=== PATIENT | female | born 1945 | race Caucasian/White ===

== ENCOUNTER 2017-02-19 14:55 | Emergency (ER) | payer MEDICARE, OTHER ==
[2017-02-19 14:55] VITALS: BMI 34.2
[2017-02-19 15:03] VITALS: TEMP 98.5
--- NOTE | 2017-02-19 15:26 | ED PDOC ---
HPI: Psych/Substance Abuse Time Seen by Provider: 02/19/17 15:04 Chief Complaint (Nursing): Psychiatric Evaluation Chief Complaint (Provider): Psychiatric Evaluation ED Caveat: Dementia History Per: Patient History/Exam Limitations: clinical condition Onset/Duration Of Symptoms: Days (x1) Current Symptoms Are (Timing): Still Present Additional History Per: EMS, [facility] (records sent with patient) Additional Complaint(s): Cheryle Vincent is a 71 year old female with a past medical history of dementia who was sent to the ED via EMS due to agitated behavior at her senior living. Per EMS and senior living records, today the patient is not cooperating with her medical management, has been fighting staff, and spitting on objects. On questioning, patient denies having any symptoms although history is unreliable and she often loses train of thought. PMD: Sid Sanford Past Medical History Reviewed: Historical Data, Nursing Documentation, Vital Signs Vital Signs: Last Vital Signs Temp 98.5 F 02/19/17 15:00 Pulse 70 02/19/17 15:00 Resp 20 02/19/17 15:00 BP 101/55 L 02/19/17 15:00 Pulse Ox 99 02/19/17 15:00 - Medical History PMH: Anxiety, Dementia, HTN Denies: Bipolar Disorder, Depression, Paranoia, Post Traumatic Stress Disorder, Schizophrenia - Family History Family History: States: Unknown Family Hx - Living Arrangements Living Arrangements: [facility]mediate/[facility] L[facility] - Social History Current smoker - smoking cessation education provided: No Alcohol: None Drugs: Denies - Immunization History Hx Tetanus Toxoid Vaccination: No Hx Influenza Vaccination: No Hx Pneumococcal Vaccination: No - Home Medications Home Medications: Ambulatory Orders Medication Instructions Recorded Docusate [Colace] 100 mg PO BID PRN 08/17/14 Escitalopram [Lexapro] 20 mg PO DAILY 08/17/14 Magnesium Hydroxide [Milk Of 30 ml PO HS PRN 08/17/14 Magnesia] Memantine [Namenda] 5 mg PO DAILY 08/17/14 ALPRAZolam [Xanax] 0.25 mg PO DIN 09/02/15 Alprazolam [Xanax] 0.5 mg PO DAILY 09/02/15 Propylene Glycol/Peg 400 [Systane 1 drop OU BID 09/02/15 0.3-0.4% Eye Drops] Sennosides [Senna] 8.6 mg PO PRN PRN 09/02/15 Valsartan [Diovan] 160 mg PO DAILY 09/02/15 Nitrofurantoin Macrocrystals 1 cap PO BID #14 cap 02/19/17 [Macrobid] - Allergies Allergies/Adverse Reactions: Allergies Allergy/AdvReac Type Severity Reaction Status Date / Time No Known Allergies Allergy Verified 08/17/14 09:05 Review of Systems Review Of Systems: ROS cannot be obtained secondary to pt's inabilty to answer questions. Physical Exam - Reviewed Nursing Documentation Reviewed: Yes Vital Signs Reviewed: Yes - Physical Exam Appears: Positive for: Well, No Acute Distress Head Exam: Positive for: ATRAUMATIC, NORMOCEPHALIC Skin: Positive for: Warm, Dry Eye Exam: Positive for: EOMI, PERRL ENT: Negative for: Pharyngeal Erythema, Tonsillar Exudate Neck: Positive for: Painless ROM, Supple Cardiovascular/Chest: Positive for: Regular Rate, Rhythm, Chest Non Tender. Negative for: Murmur Respiratory: Positive for: Normal Breath Sounds. Negative for: Wheezing Gastrointestinal/Abdominal: Positive for: Soft. Negative for: Tenderness Back: Positive for: Normal Inspection. Negative for: Decreased ROM Extremity: Positive for: Normal ROM. Negative for: Deformity Lymphatic: Negative for: Adenopathy Neurologic/Psych: Positive for: Alert, Oriented (x1), Mood/Affect (pleasantly confused). Negative for: Motor/Sensory Deficits - Laboratory Results Result Diagrams: 02/19/17 16:34 02/19/17 16:34 - ECG O2 Sat by Pulse Oximetry: 99 (RA) Pulse Ox Interpretation: Normal Medical Decision Making Medical Decision Making: Initial Impression: Agitated behavior Differentials include exacerbation of dementia, dehydration, electrolyte abnormality, UTI, metabolic encephalopathy Time: 15:17 Initial Plan: --EKG --CMP --Magnesium --Phosphorous --TSH --Troponin I --Valproic acid --CBC w/ differential --Blood culture --Urine culture --Urinalysis --Urine dipstick --Chest x-ray portable --CT Head w/o contrast --Pending crisis evaluation. Placed on 1:1 observation due to risk of elopement Time: 16:26 CHEST X-RAY FINDINGS: LUNGS: No active pulmonary disease. PLEURA: No significant pleural effusion identified, no pneumothorax apparent. CARDIOVASCULAR: Cardiomediastinal silhouette at the upper limits of normal. OSSEOUS STRUCTURES: Spinal degenerative changed. VISUALIZED UPPER ABDOMEN: Right upper quadrant surgical clips. OTHER FINDINGS: None. IMPRESSION: No active disease. Accession No. : [id number] Patient Name / ID : OLGA LEAVITT / [id number] Exam Date : 02/19/2017 16:12:32 ( Approved ) Study Comment : Sex / Age : F / 71Y Creator : Sammy Jacome MD Dictator : Sammy Jacome MD Pediatrician Managing Partner : Alligator Hunter : Sammy Jacome MD Approver2 : Report Date : 02/19/2017 16:26:52 My Comment : HISTORY: agitation COMPARISON: No prior. FINDINGS: LUNGS: No active pulmonary disease. PLEURA: No significant pleural effusion identified, no pneumothorax apparent. CARDIOVASCULAR: Cardiomediastinal silhouette at the upper limits of normal. OSSEOUS STRUCTURES: Spinal degenerative changed. VISUALIZED UPPER ABDOMEN: Right upper quadrant surgical clips. OTHER FINDINGS: None. IMPRESSION: No active disease. 17:[address] scan reviewed. Findings noted as follows: FINDINGS: HEMORRHAGE: No intracranial hemorrhage. BRAIN: Diffuse atrophy with prominence of the ventricles and sulci noted. No mass effect or edema. Intracranial atherosclerosis. Nonspecific coarse calcification noted at the level of the occipital parietal sulcus on the left ; remote trauma or infection may be potential etiologies. Asymmetry with soft tissue prominence noted at the level the right cavernous sinus possibly exaggerated by a head tilt; tumor or aneurysm cannot be excluded. Moderate scattered periventricular and subcortical white matter hypodensities, which are nonspecific, but often seen with chronic microvascular ischemic disease. Please note that MRI with diffusion imaging is more sensitive in the detection of acute ischemic event. VENTRICLES: No hydrocephalus. CALVARIUM: Unremarkable. PARANASAL SINUSES: Unremarkable as visualized. No significant inflammatory changes. MASTOID AIR CELLS: Unremarkable as visualized. No inflammatory changes. OTHER FINDINGS: None. IMPRESSION: Asymmetry with soft tissue prominence noted at the level the right cavernous sinus possibly exaggerated by a head tilt; tumor or aneurysm cannot be excluded. Recommend further evaluation with MR brain without and with IV contrast. Moderate nonspecific white matter changes. Generalized atrophy. Scribe Attestation: Documented by Cynthia Johnson and Danielle Abreu acting as scribes for Diana Reyna MD Provider Scribe Attestation: All medical record entries made by the Scribe were at my direction and personally dictated by me. I have reviewed the chart and agree that the record accurately reflects my personal performance of the history, physical exam, medical decision making, and the department course for this patient. I have also personally directed, reviewed, and agree with the discharge instructions and disposition. Disposition - Clinical Impression Clinical Impression: Dementia, UTI (urinary tract infection) - Disposition Disposition: Other Institution (DC to senior living) Disposition Time: 17:02 Condition: GOOD Additional Instructions: CONTINUE ALL YOUR MEDICATIONS PRESCRIBED. Prescriptions: Nitrofurantoin Macrocrystals [Macrobid] 1 cap PO BID #14 cap Instructions: Urinary Tract Infection in Women (ED), Dementia (ED)
--- NOTE | 2017-02-19 16:28 | RAD ---
HISTORY: agitation COMPARISON: No prior. FINDINGS: LUNGS: No active pulmonary disease. PLEURA: No significant pleural effusion identified, no pneumothorax apparent. CARDIOVASCULAR: Cardiomediastinal silhouette at the upper limits of normal. OSSEOUS STRUCTURES: Spinal degenerative changed. VISUALIZED UPPER ABDOMEN: Right upper quadrant surgical clips. OTHER FINDINGS: None. IMPRESSION: No active disease.
[2017-02-19 16:39] LABS: BASO % 0.7 % (0.0-2.0); EOS # 0.2 K/uL (0.0-0.7); EOS % 2.8 % (0.0-4.0); HEMATOCRIT 35.6 % (34.0-47.0); LYMPH # 1.4 K/uL (1.0-4.3); LYMPH % 20.6 % (20.0-40.0); MEAN CORPUSCULAR HEMOGLOBIN 31.3 pg (27.0-31.0); MEAN CORPUSCULAR HGB CONC 32.6 g/dL (33.0-37.0); MEAN PLATELET VOLUME 8.7 fl (7.2-11.7); MONO # 0.7 K/uL (0.0-0.8); MONO % 10.7 % (0.0-10.0); NEUT # 4.4 K/uL (1.8-7.0); NEUT % 65.2 % (50.0-75.0); NRBC % 0.1 % (0.0-0.0); WHITE BLOOD COUNT 6.8 K/uL (4.8-10.8)
[2017-02-19 17:00] LABS: ALB/GLOB RATIO 1.3 (1.0-2.1); ALKALINE PHOSPHATASE 41 U/L (38-126); ALT/SGPT 40 U/L (9-52); AST/SGOT 30 U/L (14-36); BILIRUBIN,TOTAL 0.3 mg/dl (0.2-1.3); BLOOD UREA NITROGEN 23 mg/dl (7-17); CALCIUM 8.9 mg/dL (8.4-10.2); CARBON DIOXIDE 30 mmol/L (22-30); CHLORIDE 105 mmol/L (98-107); GFR AFRICAN-AMERICAN > 60; GLUCOSE,RANDOM 97 mg/dL (65-105); MAGNESIUM 1.9 MG/DL (1.6-2.3); PHOSPHOROUS 3.7 mg/dl (2.5-4.5); POTASSIUM 4.3 MMOL/L (3.6-5.0); SODIUM 142 mmol/l (132-148); TOTAL PROTEIN 6.8 G/DL (6.3-8.2)
[2017-02-19 17:32] LABS: THYROID STIMULATING HORMONE 4.48 mIU/ML (0.46-4.68)
--- NOTE | 2017-02-19 17:33 | CT ---
PROCEDURE: CT HEAD WITHOUT CONTRAST. HISTORY: agitation COMPARISON: None available. TECHNIQUE: Axial computed tomography images were obtained through the head/brain without intravenous contrast. Radiation dose: Total exam DLP = 1631.79 mGy-cm. This CT exam was performed using one or more of the following dose reduction techniques: Automated exposure control, adjustment of the mA and/or kV according to patient size, and/or use of iterative reconstruction technique. FINDINGS: HEMORRHAGE: No intracranial hemorrhage. BRAIN: Diffuse atrophy with prominence of the ventricles and sulci noted. No mass effect or edema. Intracranial atherosclerosis. Nonspecific coarse calcification noted at the level of the occipital parietal sulcus on the left ; remote trauma or infection may be potential etiologies. Asymmetry with soft tissue prominence noted at the level the right cavernous sinus possibly exaggerated by a head tilt; tumor or aneurysm cannot be excluded. Moderate scattered periventricular and subcortical white matter hypodensities, which are nonspecific, but often seen with chronic microvascular ischemic disease. Please note that MRI with diffusion imaging is more sensitive in the detection of acute ischemic event. VENTRICLES: No hydrocephalus. CALVARIUM: Unremarkable. PARANASAL SINUSES: Unremarkable as visualized. No significant inflammatory changes. MASTOID AIR CELLS: Unremarkable as visualized. No inflammatory changes. OTHER FINDINGS: None. IMPRESSION: Asymmetry with soft tissue prominence noted at the level the right cavernous sinus possibly exaggerated by a head tilt; tumor or aneurysm cannot be excluded. Recommend further evaluation with MR brain without and with IV contrast. Moderate nonspecific white matter changes. Generalized atrophy.
[2017-02-19 17:51] LABS: RBC URINE 24 /hpf (0-3); URINE BACTERIA MANY (<OCC); URINE BILIRUBIN NEGATIVE (NEGATIVE); URINE BLOOD MODERATE (NEGATIVE); URINE COLOR YELLOW (YELLOW); URINE GLUCOSE (UA) NEG (Normal); URINE KETONE NEGATIVE (NEGATIVE); URINE LEUKOCYTE ESTERASE LARGE Leu/uL (Negative); URINE PROTEIN NEGATIVE (NEGATIVE); URINE UROBILINOGEN 0.2-1.0 mg/dL (0.2-1.0); WBC URINE 114 /hpf (0-5)
[2017-02-19 19:48] VITALS: BP 142/70; PULSE 64; RESP 18
--- NOTE | 2017-02-20 12:50 | CARD ---
APPROVED REPORT EKG Measurement Heart [id number] <Conclusion> Normal sinus rhythm Cannot rule out Anterior infarct, age undetermined Abnormal ECG
[2017-02-22 14:22] VITALS: O2SAT 99
== END 2017-02-19 19:50 ==
LOC: H.ER 14:55
DX: F03.90 Unspecified dementia, unspecified severity, without behavioral disturbance, psychotic disturbance, mood disturbance, and anxiety (principal); N39.0 Urinary tract infection, site not specified; F41.9 Anxiety disorder, unspecified; I10 Essential (primary) hypertension